=== PATIENT | female | born 1955 | race Caucasian/White ===

== ENCOUNTER 2018-10-29 10:50 | Day surgery (SDC) | payer BC ==
[~2018-10-29 10:50] MED LIST: CEFAZOLIN 2 Gram 2 GM/50 ML BAG IVPB ONE; CELECOXIB 100 MG CAPSULE PO ONE; FAMOTIDINE 20MG TABLET PO ONE; MECLIZINE 25 MG TABLET PO ONE; METOCLOPRAMIDE 10 MG TABLET PO ONE; VANCOMYCIN HCL 1,000 MG in DEXTROSE 5 % IN WATER 250 ML IVPB ONE
[2018-10-29] MEDS ORDERED: ROPIVACAINE HCL (NAROPIN) /PF 5MG/ML 20ML VIAL IV ONE (10:51)
[2018-10-29] MEDS ORDERED: TRANEXAMIC ACID 1,000 MG/10 ML ML IV ONE (10:51)
[2018-10-29] MEDS ORDERED: BUPIVACAINE 0.5% W/EPI MPF 30 ML VIAL IVP ONE (10:51)
[2018-10-29] MEDS ORDERED: PROPOFOL 10 MG/ML VIAL IV ONE (10:51)
[2018-10-29] MEDS ORDERED: DEXAMETHASONE 4 MG/ML 1ML VIAL IVP ONE (10:51)
[2018-10-29] MEDS ORDERED: MIDAZOLAM HCL 2MG/2ML VIAL IV ONE (10:51)
[2018-10-29] MEDS ORDERED: FENTANYL PF 100MCG/2ML VIAL IV ONE (10:51)
[2018-10-29] MEDS ORDERED: EPHEDRINE SULFATE 50 MG/ML ML IV ONE (10:51)
[2018-10-29] MEDS ORDERED: KETAMINE HCL 100MG/1ML VIAL INJ ONE (10:51)
[2018-10-29 13:54] LABS: ABO GROUP AB; ANTIBODY SCREEN NEGATIVE (NEGATIVE); RH TYPE POSITIVE
[2018-10-29] MEDS ORDERED: AL HYDROX/MAG HYDROX 30ML UD PO PRN (15:22)
[2018-10-29] MEDS ORDERED: BISACODYL 10 MG SUPP RC PRN (15:22)
[2018-10-29] MEDS ORDERED: HYDROMORPHONE HCL 2 MG/ML VIAL IM PRN (15:22)
[2018-10-29] MEDS ORDERED: KETOROLAC 30 MG/ML VIAL IVP PRN ×2 (15:22)
[2018-10-29] MEDS ORDERED: ZOLPIDEM TARTRATE 5 MG TABLET PO PRN (15:22)
[2018-10-29] MEDS ORDERED: ONDANSETRON HCL IV 4 MG/2 ML VIAL IVP PRN (15:22)
[2018-10-29] MEDS ORDERED: NALOXONE 0.4 MG/1 ML VIAL IVP PRN (15:22)
[2018-10-29] MEDS ORDERED: ACETAMINOPHEN 325 MG TAB PO PRN (15:22)
[2018-10-29] MEDS ORDERED: TRAMADOL HCL 50 MG TABLET PO PRN (15:22)
[2018-10-29] MEDS ORDERED: MAGNESIUM HYDROXIDE 30 ML UDC PO PRN (15:22)
[2018-10-29] MEDS ORDERED: DIPHENHYDRAMINE HCL 25 MG CAPSULE PO PRN (15:22)
[2018-10-29] MEDS ORDERED: ACETAMINOPHEN W/ CODEINE 300MG/60MG TABLET PO PRN ×2 (15:22)
[2018-10-29] MEDS ORDERED: ALPRAZOLAM 0.25 MG TABLET PO PRN (15:51)
[2018-10-29] MEDS: HYDROCODONE/APAP 10/325 TABLET PO PRN ×2 (17:07→18:29)
[2018-10-29] MEDS: DOCUSATE SODIUM 100 MG CAPSULE PO SCH (21:19)
[2018-10-29] MEDS: CEFAZOLIN 2 Gram 2 GM/50 ML BAG IVPB SCH (21:19)
[2018-10-29] MEDS: POTASSIUM CHLORIDE/D5-0.9%NACL 20 MEQ/1,000 ML BAG IV SCH (21:20)
[2018-10-29] MEDS ORDERED: SIMVASTATIN 20 MG TABLET PO SCH (22:00)
[2018-10-30] MEDS: HYDROCODONE/APAP 10/325 TABLET PO PRN ×4 (00:10→16:07)
[2018-10-30] MEDS: CEFAZOLIN 2 Gram 2 GM/50 ML BAG IVPB SCH ×2 (05:16→15:08)
[2018-10-30] MEDS: POTASSIUM CHLORIDE/D5-0.9%NACL 20 MEQ/1,000 ML BAG IV SCH ×2 (05:44→12:00)
[2018-10-30] MEDS ORDERED: LEVOTHYROXINE SODIUM 75 MCG TABLET PO SCH (07:00)
[2018-10-30 07:21] LABS: BLOOD UREA NITROGEN 8 mg/dL (8-23); CREATININE 0.6 mg/dL (0.5-0.9); EST GLOMERULAR FILTRATION RATE > 60 mL/min; GLUCOSE,RANDOM 154 mg/dL (74-109)
[2018-10-30 08:22] LABS: HEMATOCRIT 36.8 % (35.0-47.0); HEMOGLOBIN 12.4 gm/dl (11.6-16.0)
--- NOTE | 2018-10-30 08:50 | Operative Note ---
DATE OF SURGERY: 10/29/2018 PREOPERATIVE DIAGNOSIS: End-stage arthrosis of the right knee. POSTOPERATIVE DIAGNOSIS: End-stage arthrosis of the right knee. OPERATION: Cemented right total knee arthroplasty using Suero and Nephew Dinorah II components with a size 4 Oxinium femur, a size 3 stem tibia baseplate, a 9 mm lipped tibial insert, and a 32 mm all plastic patella. Staff Surgeon: Sean Lofton MD Anesthesia: Spinal. PREPARATION: Chloraprep. INDIVIDUAL CONSIDERATIONS: None. PROCEDURE: The patient was taken to the operating room, placed supine on the operating room table. She had a successful induction of spinal anesthetic. The right leg was then prepped and draped in the usual fashion. The patient had a midline approach to the knee. The limb was elevated and tourniquet was inflated to 250 mmHg. Sharp dissection carried down through skin and subcutaneous tissue. Small veins were coagulated with a Bovie. A medial arthrotomy was performed. The patella was everted and the knee was flexed. The patient had exposed bone in the medial and patellofemoral compartments with bone loss. Large osteophytes were also present. Fat pad was resected, ACL was sacrificed, provisional anterior meniscectomies were performed. The capsule was released from the medial proximal tibia. The initial femoral maritime pilot hole was then made freehand. The intramedullary femoral cutting jig was placed. It was cut in 7.0 degrees of valgus and adjusted for rotation and secured with pins for a 10 mm resection. The initial transverse cut was then made. The skin guide was placed in the anterior and posterior maritime pilot holes. It was found that a size 4 would be appropriate. The anterior and posterior cuts followed by chamfer cuts were made. Osteophytes removed, and a size 4 trial was placed and found to fit well. The tibia was brought forward, and the remainder of the meniscal remnants removed with a Bovie. The tibial cutting jig was placed. It was cut in neutral with a 3-degree AP slope. Care was taken to adjust for rotation and flexion using the extraarticular alignment guide and bony landmarks. It was set for a 9 mm resection keyed off the high lateral side and secured with pins. When cutting the tibia, care was taken to preserve the PCL insertion on the tibia. After making the cut and removing large medial osteophytes, it was found that a size 3 baseplate trial fit appropriately and it was adjusted for rotation and secured with pins. With a tibial baseplate trial and a 9 mm trial along with a size 4 femoral trial, there was excellent motion and stability, ligamentous balance, rotation alignment, and patellofemoral tracking were normal. No lateral release was required. The femoral maritime pilot holes were impacted and the tri-flange tibial stamp was impacted, and these trial components were removed. The patient had just enough patella for resurfacing and I cut roughly 9 mm of bone off with an oscillating saw freehand. I was easily able to fit a 32 patella, and the 3 maritime pilot holes were drilled. The tourniquet was let down briefly to get bleeders posteriorly and then placed back up again. Again thoroughly irrigation with pulsatile Betadine and saline to remove any visual or palpable debris. Bony surfaces were again dried. A size 3 stem tibia baseplate was cemented into place followed by impaction of the 9 mm lipped higly crosslinked tibial insert followed by cementing in the size 4 Oxinium femur followed by cementing in the 32 mm all plastic patella. The implant surfaces were compressed, excess cement was removed, and after the cement had set, there was excellent motion and stability, ligamentous balance, rotation alignment, and patellofemoral tracking were normal. No lateral release was required. Again tourniquet was let down. Hemostasis was obtained with a Bovie. The capsule, periosteum, and skin and subcu were then infiltrated with 30 mL of 0.5% Marcaine with epinephrine. The capsule was then closed with a running #2 quill, subcu was closed in layers with running 0 quill, skin was closed with kathy. I then mixed 1 g of tranexamic acid with 30 mL of saline and injected into the knee through a sterile 18-gauge needle, and a sterile bulky compressive MARGARET-type dressing was applied. The patient tolerated the procedure well. Needle and sponge counts were correct. Estimated blood loss was minimal, and she was taken back to recovery in good condition. There were no complications. KUNAL
[2018-10-30] MEDS ORDERED: RANITIDINE HCL 150 MG TABLET PO SCH (10:00)
[2018-10-30] MEDS ORDERED: FERROUS SULFATE 325 MG TAB PO SCH (10:00)
[2018-10-30] MEDS ORDERED: RIVAROXABAN 10 MG TABLET PO SCH (10:00)
[2018-10-30] MEDS: DOCUSATE SODIUM 100 MG CAPSULE PO SCH (10:34)
--- NOTE | 2018-10-30 12:07 | Rehab Evaluation ---
Patient Information - Patient Information Diagnosis: R knee OA s/p TKA Ordered Treatment: OT Evaluate and Treat Status: Initial Evaluation Past Medical/Surgical Hx: PAST MEDICAL/SURGICAL HISTORY Past Surgical History BREAST AUGMENTATION C SCOPE HERNIA REPAIR HIATAL LTKA 2016 [facility] PMH - Respiratory Hx Respiratory Disorders Yes Hx Bronchitis Yes Comment: SNORES PMH - Cardiovascular Hx Cardiovascular Disorders Yes Exercise Tolerance Good Comment: HYPERLIPIDEMIA PMH - Neuro Hx Neurological Disorders No PMH - GI Hx Gastrointestinal Disorders Yes Hx Gastroesophageal Reflux Yes Hx Hiatal Hernia Yes PMH - Hx Genitourinary Disorders No PMH - Endocrine Hx Endocrine Disorders Yes Hx Thyroid Disease Yes PMH - Musculoskeletal Hx Musculoskeletal Disorders Yes Hx Arthritis Yes: RIGHT KNEE PMH - Psych Hx Psychiatric Problems No Hx Anxiety Yes PMH - Hematology/Oncology Hx Hematology/Oncology No Disorders Premorbid Status: Detail (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 Her bathroom consists of tub/shower combination with a hand held shower head and standard height toilet with no grab bars. She will have assistance with meals/transportation. Patient owns a walker and cane. She will be returning to work in 4 weeks. Patient's works during the day but her son will be staying with them for a month and will be home during the day to assist if needed.) Precautions: [place], Fall - Time With Patient Total Time Spent With Patient (Min): 20 Treatment Procedures: Detail (OT eval low) Objective Data - Pain Pain Present: Yes Pain Intensity: 5 (R knee) Pain Scale Used: Numeric (1 - 10) - Mental Status Patient Orientation: Oriented x3 - Visual Perception Appears within normal limits for therapeutic activities - ROM Within normal limits (BUE's) - Strength/Tone Within normal limits (BUE's) - Coordination Appears within normal limits for therapeutic activities - Bed Mobility Independent - Transfers Independent - Balance Balance Sitting: Good - Sensation Intact (Sundar hands) - ADL's/IADL's Detail (Patient was educated and demonstrated independence with LB drsg using modified drsg techniques. She was able to don pants without use of equipment. Independent with UB drsg. Patient feels confident with drsg techniques. She will have help from son during the day for sock and shoe don.) Therapy Assessment - Therapy Assessment Detail (Patient demonstrated safety and independence with LB drsg. She has no further questions reguarding modified drsg technique. No further inpatient OT needed at this time.) Patient Education - Patient Education Teaching Topic: Equipment Use Response: Return Demonstration Teaching Method: Discussion Teaching Recipient: Patient Barriers To Learning: None Prognosis - Prognosis Good Plan - Plan Occupational Therapy Plan: No further inpatient OT needed at this time.
--- NOTE | 2018-10-30 15:40 | Rehab Evaluation ---
Patient Information - Patient Information Diagnosis: R knee OA s/p TKA Ordered Treatment: PT Evaluate and Treat Status: Initial Evaluation Surgery: Yes (R TKA) Date of Surgery: 10/29/18 Past Medical/Surgical Hx: PAST MEDICAL/SURGICAL HISTORY Past Surgical History BREAST AUGMENTATION C SCOPE HERNIA REPAIR HIATAL LTKA 2016 [facility] PMH - Respiratory Hx Respiratory Disorders Yes Hx Bronchitis Yes Comment: SNORES PMH - Cardiovascular Hx Cardiovascular Disorders Yes Exercise Tolerance Good Comment: HYPERLIPIDEMIA PMH - Neuro Hx Neurological Disorders No PMH - GI Hx Gastrointestinal Disorders Yes Hx Gastroesophageal Reflux Yes Hx Hiatal Hernia Yes PMH - Hx Genitourinary Disorders No PMH - Endocrine Hx Endocrine Disorders Yes Hx Thyroid Disease Yes PMH - Musculoskeletal Hx Musculoskeletal Disorders Yes Hx Arthritis Yes: RIGHT KNEE PMH - Psych Hx Psychiatric Problems No Hx Anxiety Yes PMH - Hematology/Oncology Hx Hematology/Oncology No Disorders Premorbid Status: Detail (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 Her bathroom consists of tub/shower combination with a hand held shower head and standard height toilet with no grab bars. She will have assistance with meals/transportation. Patient owns a walker and cane. She will be returning to work in 4 weeks. Patient's works during the day but her son will be staying with them for a month and will be home during the day to assist if needed.) Precautions: [place], Fall - Time With Patient Total Time Spent With Patient (Min): 30 Treatment Procedures: Detail (Initial Evaluation, gait training) Subjective Information - Subjective Information Per Patient (The patient had minimal complaints of R knee and did not rate her pain using 0-10 pain scale.) Objective Data - Mental Status Patient Orientation: Oriented x3 - Visual Perception Appears within normal limits for therapeutic activities - ROM Not within normal limits (The patient's R knee was limited s/p surgery as to be expected. All other LE AROM is WNL.) - Strength/Tone Not within normal limits (The patient's R LE strength was not tested s/p surgery however was functional ie: the patient was able to complete a SLR. The patient's L LE strength was WNL.) - Bed Mobility Independent (The patient was independent with supine to and from sit and scooting up in bed.) - Transfers Independent (The patient was independent with sit to and from stand transfer.) - Balance Balance Sitting: Good Balance Standing: Good - Sensation Intact - Gait Detail (The patient ambulated with front wheeled walker a distance of 134 feet x1 WBAT on the R LE independently. The patient ambulated on stairs using proper technique with supervision for safety only.) Therapy Assessment - Therapy Assessment Detail (The patient was independent with all mobility and with ambulation on levels and stairs and is discharged from inpatient PT. The patient is to continue with Home Pt.) Patient Education - Patient Education Teaching Topic: Exercise/Activity (The patient was independent with TKA HEP including ankle pumps, SLR, gluteal sets, quad sets, hamstring sets and seated heel slides.) Response: Return Demonstration Teaching Method: Discussion, Handout Teaching Recipient: Patient Barriers To Learning: None Problem List - Problem List Physical Therapy Problem List: Detail (Decreased R knee AROM and decreased R LE strength following surgery.) Goals - Goals Physical Therapy Goals: The patient has met all inpatient PT goals and is to continue with Home PT. Prognosis - Prognosis Good Plan - Plan Physical Therapy Plan: The patient is discharged from inpatient PT. Occupational Therapy Plan: No further inpatient OT needed at this time.
== END 2018-10-30 16:30 | disposition home health service (06) ==
LOC: SUR 10:50 → MEDSURG 16:15 → SUR 10-30 16:30
PROVIDERS: ATTEND Orthopaedic Surgery
DX: M17.11 Unilateral primary osteoarthritis, right knee (principal); E78.00 Pure hypercholesterolemia, unspecified; E03.9 Hypothyroidism, unspecified; K21.9 Gastro-esophageal reflux disease without esophagitis
CPT/HCPCS: 27447; 01402; 64447; 85018; 85014; 80048; 86900; 86901; 86850; J1885; J3370; J3010; J1170; J0690 ×2; J3490 ×4; J2795; 76942; C1776; J3480; J7060